=== PATIENT | male | born 1970 | race Caucasian/White ===

== ENCOUNTER 2017-06-05 21:57 | Inpatient (IN) | payer OTHER ==
[~2017-06-05] VITALS: Ht 188 cm; Wt 113.6 kg
[2017-06-05 22:45] LABS: HEMATOCRIT 51.2 % (38.0-50.0); HEMOGLOBIN 17.3 G/DL (12.5-16.6); MCH 28.9 PG (29.0-34.0); MCHC 33.8 G/DL (30.0-36.0); MCV 85.5 FL (86-99); PLATELET COUNT 290 K/uL (156-360); RBC DIS.WIDTH-CV 13.4 % (11.8-14.6); RBC DIS.WIDTH-SD 41.9 % (39-53); RED BLOOD COUNT 5.99 M/uL (4.00-5.50); WHITE BLOOD COUNT 16.7 K/uL (4.1-10.2)
[2017-06-05 22:58] LABS: ALBUMIN 4.9 g/dL (3.2-4.8)
[2017-06-05 22:59] LABS: CHLORIDE 100 mEq/L (99-109); POTASSIUM 4.6 mEq/L (3.7-5.4); SODIUM 141 mEq/L (136-147)
[2017-06-05 23:01] LABS: GLUCOSE 144 mg/dL (70-99); TOTAL PROTEIN 8.3 g/dL (6.4-8.3)
[2017-06-05 23:03] LABS: TOTAL BILIRUBIN 1.2 mg/dL (0.0-1.0)
[2017-06-05 23:04] LABS: ALKALINE PHOSPHATASE 68 IU/L (3-129)
[2017-06-05 23:05] LABS: CREATININE 1.2 mg/dL (0.6-1.3); GFR ESTIMATE (CALCULATED) > 59 mL/min/ (58.99-99999)
[2017-06-05 23:06] LABS: AST (GOT) 20 IU/L (2-34); UREA NITROGEN (BUN) 14 mg/dL (9-23)
[2017-06-05 23:07] LABS: ALT (GPT) 31 IU/L (3-49)
[2017-06-05 23:08] LABS: LIPASE 15 U/L (1.0-51.0)
[2017-06-05 23:11] LABS: TROP-I INTERPRETATION NEGATIVE; TROPONIN-I < 0.01 ng/mL (0.0-0.30)
[2017-06-06 01:22] LABS: APPEARANCE CLEAR ((CLEAR)); BILIRUBIN NEGATIVE; BLOOD NEGATIVE; COLOR YELLOW ((YELLOW)); GLUCOSE (STRIP) NEGATIVE; KETONES 80; LEUKOCYTES NEGATIVE; NITRITE NEGATIVE; PROTEIN (STRIP) 30; UCUL ADDED? NO; UROBILINOGEN 0.2 MG/DL (0.2-1.0)
[2017-06-06 01:32] LABS: SPECIFIC GRAVITY > 1.060 (1.000-1.030)
[2017-06-06 04:54] VITALS: BP 145/81
[2017-06-06 06:55] VITALS: BP 163/87
[2017-06-06 17:40] VITALS: BP 137/77
[2017-06-06 19:19] VITALS: BP 130/75
[2017-06-06 23:50] VITALS: BP 133/75
[2017-06-07 03:45] VITALS: BP 133/72
[2017-06-07 07:16] LABS: HEMATOCRIT 39.7 % (38.0-50.0); MCH 28.6 PG (29.0-34.0); MCV 89.4 FL (86-99); RBC DIS.WIDTH-CV 13.8 % (11.8-14.6); WHITE BLOOD COUNT 6.3 K/uL (4.1-10.2)
[2017-06-07 07:17] LABS: HEMOGLOBIN 12.7 G/DL (12.5-16.6); RED BLOOD COUNT 4.44 M/uL (4.00-5.50)
[2017-06-07 07:25] LABS: PLAT.SUFFICIENCY ADEQUATE
[2017-06-07 07:28] LABS: CHLORIDE 105 MEQ/L (99-109); CREATININE 1.1 MG/DL (0.6-1.3); GFR ESTIMATE (CALCULATED) > 59 mL/min/ (58.99-99999); GLUCOSE 109 mg/dL (70-99); POTASSIUM 4.5 MEQ/L (3.7-5.4); SODIUM 139 MEQ/L (136-147); UREA NITROGEN (BUN) 9 mg/dL (9-23)
[2017-06-07 07:29] LABS: PLATELET COUNT 184 K/uL (156-360)
[2017-06-07 08:05] VITALS: BP 125/66
[2017-06-07 11:33] VITALS: BP 129/72
[2017-06-07 16:00] VITALS: BP 127/73
[2017-06-07 19:49] VITALS: BP 148/81
[2017-06-07 23:52] VITALS: BP 136/83
[2017-06-08 03:29] VITALS: BP 128/74
[2017-06-08 06:16] LABS: HEMOGLOBIN 12.1 G/DL (12.5-16.6); MCH 27.8 PG (29.0-34.0); MCHC 31.8 G/DL (30.0-36.0); MCV 87.2 FL (86-99); PLATELET COUNT 201 K/uL (156-360); RBC DIS.WIDTH-CV 13.4 % (11.8-14.6); RBC DIS.WIDTH-SD 43.1 % (39-53); RED BLOOD COUNT 4.36 M/uL (4.00-5.50)
[2017-06-08 06:37] LABS: CHLORIDE 105 MEQ/L (99-109); GFR ESTIMATE (CALCULATED) > 59 mL/min/ (58.99-99999); GLUCOSE 106 mg/dL (70-99); POTASSIUM 4.1 MEQ/L (3.7-5.4); SODIUM 142 MEQ/L (136-147); UREA NITROGEN (BUN) 6 mg/dL (9-23)
[2017-06-08 10:08] VITALS: BP 115/69
[2017-06-08 12:24] VITALS: BP 130/70
[2017-06-08 17:02] VITALS: BP 133/76
[2017-06-08 19:37] VITALS: BP 130/74
[2017-06-09 00:16] VITALS: BP 135/75
[2017-06-09 03:24] VITALS: BP 137/74
[2017-06-09 06:43] LABS: HEMATOCRIT 37.9 % (38.0-50.0); HEMOGLOBIN 12.6 G/DL (12.5-16.6); MCH 28.8 PG (29.0-34.0); MCHC 33.2 G/DL (30.0-36.0); MCV 86.7 FL (86-99); PLATELET COUNT 209 K/uL (156-360); RBC DIS.WIDTH-CV 13.3 % (11.8-14.6); RBC DIS.WIDTH-SD 42.1 % (39-53); RED BLOOD COUNT 4.37 M/uL (4.00-5.50); WHITE BLOOD COUNT 6.5 K/uL (4.1-10.2)
[2017-06-09 07:09] LABS: CHLORIDE 105 MEQ/L (99-109); CREATININE 0.9 MG/DL (0.6-1.3); GFR ESTIMATE (CALCULATED) > 59 mL/min/ (58.99-99999); GLUCOSE 101 mg/dL (70-99); POTASSIUM 3.7 MEQ/L (3.7-5.4); SODIUM 140 MEQ/L (136-147); UREA NITROGEN (BUN) 8 mg/dL (9-23)
[2017-06-09 07:44] VITALS: BP 136/79
[2017-06-09 12:12] VITALS: BP 129/77
[2017-06-09 23:40] VITALS: BP 105/58
[2017-06-10 06:00] LABS: HEMATOCRIT 39.3 % (38.0-50.0); HEMOGLOBIN 13.1 G/DL (12.5-16.6); MCH 28.4 PG (29.0-34.0); MCHC 33.3 G/DL (30.0-36.0); MCV 85.2 FL (86-99); PLATELET COUNT 237 K/uL (156-360); RBC DIS.WIDTH-CV 13.2 % (11.8-14.6); RED BLOOD COUNT 4.61 M/uL (4.00-5.50); WHITE BLOOD COUNT 5.7 K/uL (4.1-10.2)
[2017-06-10 06:24] LABS: CHLORIDE 107 MEQ/L (99-109); CREATININE 0.9 MG/DL (0.6-1.3); GFR ESTIMATE (CALCULATED) > 59 mL/min/ (58.99-99999); GLUCOSE 95 mg/dL (70-99); POTASSIUM 3.9 MEQ/L (3.7-5.4); SODIUM 142 MEQ/L (136-147); UREA NITROGEN (BUN) 9 mg/dL (9-23)
[2017-06-10 08:21] VITALS: BP 119/67
[2017-06-10] MEDS ORDERED: NORCO 5/3251 TABLET PO (09:52)
== END 2017-06-10 13:48 | disposition home or self-care (01) | DRG 330 ==
LOC: EME 21:57 → ENRESERV 06-06 01:46 → EME 06-06 02:04 → SDC 06-06 02:04 → ENRESERV 06-06 03:42 → 2SOUTH 06-06 03:45 → 2EAST 06-06 03:45
PROVIDERS: Physician Assistant; Surgery
DX: K56.50 Intestinal adhesions [bands], unspecified as to partial versus complete obstruction (principal); Q43.0 Meckel's diverticulum (displaced) (hypertrophic); K42.9 Umbilical hernia without obstruction or gangrene; K36 Other appendicitis; K38.8 Other specified diseases of appendix; R18.8 Other ascites; R50.82 Postprocedural fever; J95.89 Other postprocedural complications and disorders of respiratory system, not elsewhere classified; J98.11 Atelectasis; Y83.8 Other surgical procedures as the cause of abnormal reaction of the patient, or of later complication, without mention of misadventure at the time of the procedure; E86.0 Dehydration; R82.4 Acetonuria; R33.8 Other retention of urine; R35.0 Frequency of micturition; R35.1 Nocturia; I10 Essential (primary) hypertension; E66.9 Obesity, unspecified; Z68.32 Body mass index [BMI] 32.0-32.9, adult; D72.828 Other elevated white blood cell count; F41.9 Anxiety disorder, unspecified; Z82.49 Family history of ischemic heart disease and other diseases of the circulatory system
CPT/HCPCS: 71045; 74177; 80048; 80053; 81003; 83605; 83690; 84484; 85027; 87040; 88302; 88307; 93005; 94799; 99281; 99285; J1170; J1650; J1885; J2250; J2270; J2405; J2543; J2710; J7030; S0030; S0074